=== PATIENT | female | born 1965 | race African-American/Black ===

== ENCOUNTER 2022-01-03 00:19 | Emergency (ER) | payer SELFPAY ==
[~2022-01-03] VITALS: Ht 160 cm; Wt 63.5 kg
[2022-01-03 00:22] VITALS: BP 121/71
== END 2022-01-03 01:55 | disposition left against medical advice (07) ==
LOC: ER 00:19
DX: Z53.21 Procedure and treatment not carried out due to patient leaving prior to being seen by health care provider (principal)